=== PATIENT | male | born 1945 | race Caucasian/White ===

== ENCOUNTER 2017-08-29 13:07 | Inpatient (IN) | payer MEDICARE ==
[~2017-08-29] VITALS: Ht 177.8 cm; Wt 126.7 kg
[~2017-08-29 13:07] MED LIST: BENA1TAB10 PO; INSU100C SQ-INSULIN; INSU100I28 SC; NOVALOG SQ-INSULIN; [UNRECOGNIZED DRUG - OTHER]; [UNRECOGNIZED DRUG - OTHER] PO; [UNRECOGNIZED DRUG - OTHER] SQ-INSULIN
[2017-08-29] MEDS ORDERED: FAMOTIDINE 20 MG/2 ML ONE (14:16)
[2017-08-29] MEDS ORDERED: ONDANSETRON ODT 4 MG ONE (14:16)
[2017-08-29] MEDS ORDERED: FAMOTIDINE 20 MG/2 ML IVP ONE (14:30)
[2017-08-29] MEDS ORDERED: SODIUM CHLORIDE FLUSH 10ML SYR IVF ONE (14:30)
[2017-08-29] MEDS ORDERED: ONDANSETRON ODT 4 MG PO ONE (14:30)
[2017-08-29] MEDS ORDERED: SODIUM CHLORIDE 0.9% 1,000ML IVBOLUS ONE ×2 (14:30→16:00)
[2017-08-29 14:32] LABS: ALANINE AMINOTRANSFERASE 40 U/L (12-78); ANION GAP 9 mmol/L (5-15); CALCIUM 7.8 mg/dL (8.5-10.1); CHLORIDE 102 mmol/L (98-107)
[2017-08-29 14:34] LABS: ALKALINE PHOSPHATASE 50 U/L (45-117); BILIRUBIN,TOTAL 0.8 mg/dL (0.2-1.0); TOTAL PROTEIN 6.6 g/dL (6.4-8.2)
[2017-08-29 14:35] LABS: BASOPHILS % (AUTO) 0 % (0-1); EOSINOPHILS % (AUTO) 0 % (1-7); LYMPHOCYTES # (AUTO) 0.64 x10^3/uL (1-3.4); LYMPHOCYTES % (AUTO) 10 % (22-44); MD NO; MEAN CORPUSCULAR HEMOGLOBIN 31.3 pg (27.5-34.5); MEAN CORPUSCULAR HGB CONC 33.2 g/dL (33.2-36.2); MEAN CORPUSCULAR VOLUME 94.1 fL (81-97); MEAN PLATELET VOLUME 9.5 fL (7.4-10.4); MONOCYTES # (AUTO) 0.55 x10^3/uL (0.2-0.8); MONOCYTES % (AUTO) 8 % (2-9); NEUTROPHILS % (AUTO) 82 % (42-75); PLATELET COUNT 123 x10^3/uL (130-400); RED BLOOD COUNT 5.97 x10^6/uL (4.38-5.82); RED CELL DISTRIBUTION WIDTH 13.4 % (9.4-14.8)
[2017-08-29 14:45] LABS: TROPONIN I < 0.015 ng/mL (0.000-0.045)
[2017-08-29] MEDS ORDERED: PROMETHAZINE 25 MG/ML, 1ML ONE (16:12)
[2017-08-29] MEDS ORDERED: PROMETHAZINE 25 MG/ML, 1ML IM ONE (16:30)
[2017-08-29 17:26] LABS: MICROSCOPIC AUTO
[2017-08-29 17:29] LABS: CULTURE INDICATED? NO
[2017-08-29] MEDS ORDERED: INSULIN REGULAR 100 UNITS/ML, 3ML VIAL ONE (17:29)
[2017-08-29] MEDS ORDERED: INSULIN REGULAR 100 UNITS/ML, 3ML VIAL SQ-INSULIN ONE (17:30)
[2017-08-29] MEDS ORDERED: ONDANSETRON 2MG/ML, 2ML IVPush PRN (18:00)
[2017-08-29] MEDS ORDERED: ACETAMINOPHEN 325 MG TABLET PO PRN (18:00)
[2017-08-29] MEDS ORDERED: DEXTROSE 50%, 50ML SYRINGE IVPush PRN (18:00)
[2017-08-29] MEDS ORDERED: DEXTROSE 4 GM TAB.CHEW PO PRN (18:00)
[2017-08-29] MEDS ORDERED: GLUCAGON 1 MG IM PRN (18:00)
[2017-08-29 19:09] LABS: HEMOGLOBIN A1C 11.9 % (4.2-6.3)
[2017-08-29 20:04] VITALS: BP 116/71
[2017-08-29] MEDS: SODIUM CHLORIDE FLUSH 10ML SYR IVF SCH (21:00)
[2017-08-29] MEDS: HEPARIN 5,000 UNITS/ML, 1ML SQ SCH (21:19)
[2017-08-29] MEDS: SODIUM CHLORIDE 0.9% 1,000 ML IV SCH (21:20)
[2017-08-29] MEDS: INSULIN LISPRO 100 UNITS/ML, PEN SQ-INSULIN SCH (21:28)
[2017-08-30] MEDS: GUAIFENESIN 200 MG TABLET PO PRN ×3 (00:10→20:13)
[2017-08-30] MEDS ORDERED: MAGNESIUM SULFATE PMX 4GM/100M 100 ML IV ONE (00:30)
[2017-08-30 01:08] VITALS: BP 128/73
[2017-08-30] MEDS: SODIUM CHLORIDE 0.9% 1,000 ML IV SCH (01:56)
[2017-08-30] MEDS: HEPARIN 5,000 UNITS/ML, 1ML SQ SCH ×3 (01:57→18:11)
[2017-08-30] MEDS: INSULIN LISPRO 100 UNITS/ML, PEN SQ-INSULIN SCH ×4 (02:13→20:14)
[2017-08-30 05:12] LABS: MEAN CORPUSCULAR HEMOGLOBIN 31.7 pg (27.5-34.5); MEAN CORPUSCULAR HGB CONC 33.8 g/dL (33.2-36.2); MEAN CORPUSCULAR VOLUME 93.9 fL (81-97); MEAN PLATELET VOLUME 9.7 fL (7.4-10.4); PLATELET COUNT 148 x10^3/uL (130-400); RED CELL DISTRIBUTION WIDTH 13.5 % (9.4-14.8)
[2017-08-30 05:27] LABS: ALBUMIN 2.7 g/dL (3.4-5.0); ANION GAP 7 mmol/L (5-15); CALCIUM 7.4 mg/dL (8.5-10.1); CHLORIDE 106 mmol/L (98-107)
[2017-08-30 05:30] LABS: ALANINE AMINOTRANSFERASE 36 U/L (12-78); ALKALINE PHOSPHATASE 44 U/L (45-117); BILIRUBIN,TOTAL 0.7 mg/dL (0.2-1.0); TOTAL PROTEIN 5.9 g/dL (6.4-8.2)
[2017-08-30 05:41] LABS: BASOPHILS # (AUTO) 0.02 x10^3/uL (0-0.1); BASOPHILS % (AUTO) 0 % (0-1); EOSINOPHILS # (AUTO) 0.01 x10^3/uL (0-0.4); EOSINOPHILS % (AUTO) 0 % (1-7); LYMPHOCYTES # (AUTO) 1.79 x10^3/uL (1-3.4); LYMPHOCYTES % (AUTO) 22 % (22-44); MD SCAN; MONOCYTES # (AUTO) 0.91 x10^3/uL (0.2-0.8); MONOCYTES % (AUTO) 11 % (2-9); NEUTROPHILS # (AUTO) 5.27 x10^3/uL (1.8-6.8); NEUTROPHILS % (AUTO) 66 % (42-75)
[2017-08-30 07:16] VITALS: BP 108/65
[2017-08-30] MEDS: SODIUM CHLORIDE FLUSH 10ML SYR IVF SCH ×2 (08:22→20:26)
[2017-08-30] MEDS: LACTATED RINGERS 1,000 ML IV SCH ×2 (11:05→17:50)
[2017-08-30 13:21] VITALS: BP 113/70
[2017-08-30] MEDS: PANTOPRAZOLE 40 MG IV IVPush SCH (13:36)
[2017-08-30] MEDS: PLEASE ENTER ALLERGIES MC SCH (18:30)
[2017-08-30 19:03] VITALS: BP 130/74
[2017-08-30] MEDS: NEOSPORIN OINT, 15GM TP PRN (20:14)
[2017-08-31] MEDS: LACTATED RINGERS 1,000 ML IV SCH ×4 (00:43→23:41)
[2017-08-31] MEDS: PANTOPRAZOLE 40 MG IV IVPush SCH ×2 (00:48→15:03)
[2017-08-31] MEDS: HEPARIN 5,000 UNITS/ML, 1ML SQ SCH ×3 (00:48→18:00)
[2017-08-31 01:00] VITALS: BP 111/68
[2017-08-31] MEDS: INSULIN LISPRO 100 UNITS/ML, PEN SQ-INSULIN SCH ×5 (02:05→19:42)
[2017-08-31] MEDS: PLEASE ENTER ALLERGIES MC SCH ×3 (02:30→18:30)
[2017-08-31 06:54] VITALS: BP 133/84
[2017-08-31] MEDS: SODIUM CHLORIDE FLUSH 10ML SYR IVF SCH ×2 (07:58→19:28)
[2017-08-31] MEDS: GUAIFENESIN 200 MG TABLET PO PRN ×2 (07:58→15:03)
[2017-08-31] MEDS: NEOSPORIN OINT, 15GM TP PRN (08:00)
[2017-08-31 14:12] VITALS: BP 119/77
[2017-08-31 19:45] VITALS: BP 115/74
[2017-09-01 01:21] VITALS: BP 122/71
[2017-09-01] MEDS: PANTOPRAZOLE 40 MG IV IVPush SCH (01:42)
[2017-09-01] MEDS: HEPARIN 5,000 UNITS/ML, 1ML SQ SCH ×2 (01:42→10:00)
[2017-09-01] MEDS: PLEASE ENTER ALLERGIES MC SCH ×2 (01:58→10:30)
[2017-09-01] MEDS: INSULIN LISPRO 100 UNITS/ML, PEN SQ-INSULIN SCH ×2 (02:01→08:00)
[2017-09-01] MEDS: LACTATED RINGERS 1,000 ML IV SCH (05:03)
[2017-09-01] MEDS ORDERED: POLYETHYLENE GLYCOL 17 GM PACKET PO ONE (07:00)
[2017-09-01 07:25] VITALS: BP 133/82
[2017-09-01 07:43] LABS: ANION GAP 7 mmol/L (5-15); CALCIUM 7.7 mg/dL (8.5-10.1); CHLORIDE 109 mmol/L (98-107); CREATININE 0.95 mg/dL (0.7-1.3)
[2017-09-01] MEDS: SODIUM CHLORIDE FLUSH 10ML SYR IVF SCH (08:10)
[2017-09-01] MEDS ORDERED: PNEUMOCOCCAL 23 VACCINE IM-VACC ONE (08:30)
[2017-09-01] MEDS ORDERED: MAGNESIUM SULFATE PMX 4GM/100M 100 ML IV ONE (08:30)
[2017-09-01] MEDS ORDERED: SENNA/DOCUSATE TABLET PO SCH (09:00)
[2017-09-01 13:06] VITALS: BP 120/72
== END 2017-09-01 14:18 | disposition home or self-care (01) | DRG 391 ==
LOC: ED 17:55 → EDIP 17:56 → ED 18:17 → 3NE 19:48
PROVIDERS: ADMIT Hospitalist; ATTEND Hospitalist
DX: A08.4 Viral intestinal infection, unspecified (principal); N17.0 Acute kidney failure with tubular necrosis; E44.0 Moderate protein-calorie malnutrition; D69.6 Thrombocytopenia, unspecified; R65.10 Systemic inflammatory response syndrome (SIRS) of non-infectious origin without acute organ dysfunction; D75.1 Secondary polycythemia; E11.65 Type 2 diabetes mellitus with hyperglycemia; E87.1 Hypo-osmolality and hyponatremia; Z68.41 Body mass index [BMI] 40.0-44.9, adult; E66.9 Obesity, unspecified; E83.51 Hypocalcemia; E86.0 Dehydration; I10 Essential (primary) hypertension; Z79.4 Long term (current) use of insulin
CPT/HCPCS: 36415; 74021; 80048; 80053; 81001; 82962; 83036; 83690; 83735; 84484; 85025; 90732; 93005; 96361; 96372; 96374; J1644; J2550; Q0162; C9113; J1815; J3475; J7030; J7120; S0028

== ENCOUNTER → 2018-03-07 | Outpatient (CLI) | payer MEDICARE | END | disposition home or self-care (01) | LOC: CFH 08:23 | PROVIDERS: ATTEND Family Medicine | DX: R91.8 Other nonspecific abnormal finding of lung field (principal) | CPT/HCPCS: 71046 ==

== ENCOUNTER → 2019-08-21 | Outpatient (CLI) | payer MEDICARE ==
[~2019-08-21] MED LIST changes: +AMLO-150 PO; +DIPH50CA30 PO; +INSU300I3 SQ; +LOSA100T14 PO
[2019-08-21 14:05] LABS: ALANINE AMINOTRANSFERASE 33 U/L (12-78); ALBUMIN 3.3 g/dL (3.4-5.0); ANION GAP 6 mmol/L (5-15); CALCIUM 8.4 mg/dL (8.5-10.1); CHLORIDE 107 mmol/L (98-107); CREATININE 1.47 mg/dL (0.7-1.3)
[2019-08-21 14:08] LABS: ALKALINE PHOSPHATASE 70 U/L (45-117); BILIRUBIN,TOTAL 0.4 mg/dL (0.2-1.0); TOTAL PROTEIN 6.9 g/dL (6.4-8.2)
== END | disposition home or self-care (01) ==
LOC: STAR 12:45
PROVIDERS: ATTEND Internal Medicine
DX: Z01.818 Encounter for other preprocedural examination (principal); D12.6 Benign neoplasm of colon, unspecified; R19.7 Diarrhea, unspecified; I44.4 Left anterior fascicular block
CPT/HCPCS: 36415; 80053; 93005

== ENCOUNTER 2019-08-28 07:39 | Day surgery (SDC) | payer MEDICARE ==
[~2019-08-28] VITALS: Ht 177.8 cm; Wt 124.0 kg
[2019-08-28] MEDS ORDERED: CHLORHEXIDINE 15 ML UDC MM STA (08:06)
[2019-08-28] MEDS ORDERED: LACTATED RINGERS 1,000 ML IV SCH (08:06)
[2019-08-28] MEDS ORDERED: CHLORHEXIDINE 15 ML UDC ONE (08:12)
[2019-08-28 08:28] VITALS: BP 159/79
[2019-08-28] MEDS ORDERED: EPHEDRINE 50 MG/ML, 1ML ONE (12:05)
[2019-08-28] MEDS ORDERED: PROPOFOL 50 ML ONE (12:22)
== END 2019-08-28 14:40 | disposition home or self-care (01) ==
LOC: OUT 07:39
PROVIDERS: ATTEND Internal Medicine
DX: D12.0 Benign neoplasm of cecum (principal); I10 Essential (primary) hypertension; E11.9 Type 2 diabetes mellitus without complications; G47.33 Obstructive sleep apnea (adult) (pediatric); E66.01 Morbid (severe) obesity due to excess calories; Z79.899 Other long term (current) drug therapy; Z86.718 Personal history of other venous thrombosis and embolism; Z91.041 Radiographic dye allergy status; Z91.013 Allergy to seafood
CPT/HCPCS: 45390; 82962; 88305; J2704; J7120

== ENCOUNTER → 2019-12-11 | Outpatient (CLI) | payer MEDICARE | END | disposition home or self-care (01) | LOC: STAR 10:01 | PROVIDERS: ATTEND Anesthesiology | DX: Z01.812 Encounter for preprocedural laboratory examination (principal); Z20.828 Contact with and (suspected) exposure to other viral communicable diseases | CPT/HCPCS: 36415; 87635 ==

== ENCOUNTER 2019-12-16 05:35 | Day surgery (SDC) | payer MEDICARE ==
[~2019-12-16] VITALS: Ht 177.8 cm; Wt 124.0 kg
[2019-12-16] MEDS ORDERED: CHLORHEXIDINE 15 ML UDC MM STA (06:08)
[2019-12-16] MEDS ORDERED: LACTATED RINGERS 1,000 ML IV SCH (06:08)
[2019-12-16 06:09] VITALS: BP 126/82
[2019-12-16 07:02] LABS: ALANINE AMINOTRANSFERASE 40 U/L (12-78); ALBUMIN 3.7 g/dL (3.4-5.0); ANION GAP 9 mmol/L (5-15); CALCIUM 8.8 mg/dL (8.5-10.1); CHLORIDE 109 mmol/L (98-107); CREATININE 1.33 mg/dL (0.7-1.3)
[2019-12-16 07:04] LABS: ALKALINE PHOSPHATASE 80 U/L (45-117); BILIRUBIN,TOTAL 0.8 mg/dL (0.2-1.0); TOTAL PROTEIN 7.2 g/dL (6.4-8.2)
[2019-12-16] MEDS ORDERED: SIMETHICONE DROPS 40 MG/0.6 ML BOTTLE ONE (07:17)
[2019-12-16] MEDS ORDERED: PROPOFOL 50 ML ONE (07:28)
== END 2019-12-16 09:58 | disposition home or self-care (01) ==
LOC: OUT 05:35
PROVIDERS: ATTEND Internal Medicine
DX: R19.7 Diarrhea, unspecified (principal); D12.0 Benign neoplasm of cecum; E11.9 Type 2 diabetes mellitus without complications; E78.5 Hyperlipidemia, unspecified; G47.33 Obstructive sleep apnea (adult) (pediatric); I10 Essential (primary) hypertension; E66.01 Morbid (severe) obesity due to excess calories; Z90.49 Acquired absence of other specified parts of digestive tract; Z98.890 Other specified postprocedural states; Z79.899 Other long term (current) drug therapy; Z68.39 Body mass index [BMI] 39.0-39.9, adult; Z79.4 Long term (current) use of insulin; Z88.3 Allergy status to other anti-infective agents; Z91.013 Allergy to seafood
CPT/HCPCS: 45381; 45385; 45388; 80053; 82962; 88305; 93005; A4648; J2704; J7120